=== PATIENT | female | born 1965 | race Caucasian/White ===

== ENCOUNTER 2023-02-08 15:20 | Observation (INO) | payer OTHER ==
[2023-02-08] MEDS ORDERED: Acetaminophen 650 MG Suppository PR PRN (18:46)
[2023-02-08] MEDS ORDERED: Prochlorperazine Edisylate 10 MG in Sodium Chloride 0.9% 50 ML IVPB PRN (19:07)
[2023-02-08] MEDS ORDERED: Nicotine 7 MG PATCH TD PRN (19:10)
[2023-02-08] MEDS ORDERED: Melatonin 3 MG TAB PO PRN (19:10)
[2023-02-08] MEDS ORDERED: Ventolin HFA Inhaler 60 PUFF INHALER INH PRN (19:14)
[2023-02-08] MEDS ORDERED: FLU VACC QS2023-24(6MOS UP)/PF 60 MCG/0.5 ML SYRINGE IM ONE (19:15)
[2023-02-08 19:40] VITALS: BMI 24.3
[2023-02-08] MEDS ORDERED: Famotidine/PF 20 mg/2ml Vial SLOW IVP SCH (21:00)
[2023-02-08] MEDS: Acetaminophen 325 MG TAB PO PRN (21:09)
[2023-02-08] MEDS: Heparin 5,000 UNITS/ML VIAL SC SCH (21:14)
[2023-02-08] MEDS: Sodium Chloride 0.9% 1,000 ML IV SCH (21:16)
[2023-02-08 21:58] LABS: SARS-CoV-2 NAA Rapid Test Not Detected (NotDetected)
[2023-02-08] MEDS ORDERED: traMADol HCl 50 MG TAB PO SCH (23:15)
[2023-02-08 23:46] LABS: Anion Gap 21 mmol/L (10-20); BUN (Urea Nitrogen) 62 mg/dL (9.8-20.1); Calc. Creatinine Clearance 9 mL/min (70-130); Calcium 8.3 mg/dL (7.8-10.44); Carbon Dioxide 19 mmol/L (22-29); Chloride 88 mmol/L (98-107); Estimated GFR 6; Glucose 90 mg/dL (70-105); Sodium 125 mmol/L (136-145)
[2023-02-09 03:39] LABS: #Eosinphils 0.1 10x3/uL (0.0-0.5); #Monocytes 0.8 10x3/uL (0.0-1.1); #Neutrophils 4.1 10x3/uL (1.5-8.4); %Basophils 0.6 % (0.0-2.0); %Eosinophils 0.7 % (0.0-6.0); %Lymphocytes 26.7 % (18.0-47.0); %Monocytes 11.4 % (0.0-10.0); %Neutrophils 60.3 % (40.0-75.0); Hemoglobin 12.1 g/dL (12.0-15.5); Mean Corpuscular HGB CONC 35.6 g/dL (32.0-36.0); Mean Corpuscular Hemoglobin 30.7 pg (27.0-33.0); Mean Corpuscular Volume 86.3 fl (81.6-98.3); Mean Platelet Volume 11.1 fl (7.4-10.4); Platelet Count 211 10x3/uL (150-450); Red Blood Cell (RBC) Count 3.94 10x6/uL (3.90-5.03); White Blood Cell (WBC) Count 6.7 10x3/uL (3.5-10.5)
[2023-02-09 04:10] LABS: Phosphorus 7.1 mg/dL (2.3-4.7)
[2023-02-09 04:12] LABS: Anion Gap 20 mmol/L (10-20); BUN (Urea Nitrogen) 60 mg/dL (9.8-20.1); Calc. Creatinine Clearance 10 mL/min (70-130); Carbon Dioxide 18 mmol/L (22-29); Chloride 90 mmol/L (98-107); Estimated GFR 7; Glucose 81 mg/dL (70-105); Magnesium 1.7 mg/dL (1.6-2.6); Potassium 3.1 mmol/L (3.5-5.1); Sodium 125 mmol/L (136-145)
[2023-02-09] MEDS ORDERED: Potassium Chloride 20 MEQ TAB PO SCH (07:30)
[2023-02-09] MEDS: Heparin 5,000 UNITS/ML VIAL SC SCH ×3 (08:26→21:16)
[2023-02-09] MEDS: Acetaminophen 325 MG TAB PO PRN ×2 (08:26→21:15)
[2023-02-09] MEDS ORDERED: Lidocaine 4% Patch TD SCH (10:15)
[2023-02-09] MEDS: Sodium Chloride 0.9% 1,000 ML IV SCH (10:56)
[2023-02-09 16:16] LABS: Potassium, Urine 35.7 mmol/L
[2023-02-09 19:49] LABS: Anion Gap 17 mmol/L (10-20); BUN (Urea Nitrogen) 41 mg/dL (9.8-20.1); Calc. Creatinine Clearance 23 mL/min (70-130); Calcium 8.6 mg/dL (7.8-10.44); Carbon Dioxide 20 mmol/L (22-29); Chloride 97 mmol/L (98-107); Estimated GFR 17; Glucose 96 mg/dL (70-105); Potassium 3.4 mmol/L (3.5-5.1); Sodium 131 mmol/L (136-145)
[2023-02-09 19:50] LABS: Phosphorus 3.9 mg/dL (2.3-4.7)
[2023-02-09] MEDS ORDERED: LIDOCAINE Patch Removal TOP SCH (21:00)
[2023-02-09] MEDS ORDERED: Famotidine/PF 20 mg/2ml Vial SLOW IVP SCH (21:00)
[2023-02-09] MEDS ORDERED: traMADol HCl 50 MG TAB PO PRN (23:29)
[2023-02-10 01:49] LABS: Bilirubin Neg (Negative); Blood, Urine Negative (Negative); Glucose, Urine (Dipstick) Normal (Negative); Ketone, Urine Negative (Negative); Leukocyte Negative (Negative); Nitrite Negative (Negative); Protein, Urine (Dipstick) Negative (Neg-Trace); Specific Gravity, Urine 1.015 (1.005-1.030); Urobilinogen Normal mg/dL (Less than 2)
[2023-02-10 02:13] LABS: Bacteria/HPF None Seen HPF (None Seen); Clarity Clear (Clear); RBC/HPF None Seen HPF (0-3); WBC/HPF 0-3 HPF (0-3)
[2023-02-10 02:17] LABS: Protein, Urine Random Quant Less than 10 mg/dL (1-14)
[2023-02-10 03:37] LABS: #Basophils 0.1 10x3/uL (0.0-0.2); #Eosinphils 0.1 10x3/uL (0.0-0.5); #Monocytes 0.7 10x3/uL (0.0-1.1); #Neutrophils 2.5 10x3/uL (1.5-8.4); %Basophils 1.1 % (0.0-2.0); %Eosinophils 1.6 % (0.0-6.0); %Lymphocytes 39.5 % (18.0-47.0); %Monocytes 12.8 % (0.0-10.0); %Neutrophils 44.8 % (40.0-75.0); Hematocrit 30.6 % (34.9-44.5); Hemoglobin 10.9 g/dL (12.0-15.5); Mean Corpuscular HGB CONC 35.6 g/dL (32.0-36.0); Mean Corpuscular Hemoglobin 31.1 pg (27.0-33.0); Mean Corpuscular Volume 87.4 fl (81.6-98.3); Mean Platelet Volume 11.2 fl (7.4-10.4); Platelet Count 208 10x3/uL (150-450); RBC Distribution Width 12.1 % (11.5-14.5); White Blood Cell (WBC) Count 5.5 10x3/uL (3.5-10.5)
[2023-02-10 04:16] LABS: Anion Gap 12 mmol/L (10-20); BUN (Urea Nitrogen) 33 mg/dL (9.8-20.1); Calc. Creatinine Clearance 35 mL/min (70-130); Calcium 8.3 mg/dL (7.8-10.44); Carbon Dioxide 25 mmol/L (22-29); Chloride 99 mmol/L (98-107); Estimated GFR 29; Glucose 126 mg/dL (70-105); Potassium 3.9 mmol/L (3.5-5.1); Sodium 132 mmol/L (136-145)
[2023-02-10] MEDS: Sodium Chloride 0.9% 1,000 ML IV SCH (05:12)
[2023-02-10 09:00] VITALS: BP 163/90; TEMP 97.8
[2023-02-10] MEDS ORDERED: Lidocaine 4% Patch TD SCH (09:00)
[2023-02-10] MEDS: Heparin 5,000 UNITS/ML VIAL SC SCH (09:39)
== END 2023-02-10 11:30 | disposition home or self-care (01) ==
LOC: CSHTELE 17:01 → INTOOBSV 17:01
PROVIDERS: ADMIT Internal Medicine; ATTEND Hospitalist
DX: I12.9 Hypertensive chronic kidney disease with stage 1 through stage 4 chronic kidney disease, or unspecified chronic kidney disease (principal); N18.30 Chronic kidney disease, stage 3 unspecified; N17.9 Acute kidney failure, unspecified; D63.1 Anemia in chronic kidney disease; E87.1 Hypo-osmolality and hyponatremia; E87.6 Hypokalemia; E78.5 Hyperlipidemia, unspecified; G47.00 Insomnia, unspecified; F17.210 Nicotine dependence, cigarettes, uncomplicated; F10.90 Alcohol use, unspecified, uncomplicated; Z90.710 Acquired absence of both cervix and uterus; Z79.899 Other long term (current) drug therapy
CPT/HCPCS: 0241U; 36415; 76770; 80048; 81001; 82306; 82436; 82570; 83735; 83970; 84100; 84133; 84156; 84300; 85025; 94760; 96372; 96374; 96375; 96376; G0378; J0780; J1644; J7050; S0028

== ENCOUNTER 2023-02-20 21:18 | Emergency (ER) | payer OTHER ==
[2023-02-20 21:54] LABS: Bilirubin Neg (Negative); Blood, Urine 10 (Negative); Clarity Cloudy (Clear); Glucose, Urine (Dipstick) 50 mg/dL (Negative); Ketone, Urine 5 mg/dL (Negative); Leukocyte 25 (Negative); Nitrite Negative (Negative); Protein, Urine (Dipstick) 30 mg/dl (Neg-Trace)
[2023-02-20 22:24] LABS: #Eosinphils 0.4 10x3/uL (0.0-0.5); #Monocytes 0.3 10x3/uL (0.0-1.1); %Basophils 0.5 % (0.0-2.0); %Eosinophils 4.8 % (0.0-6.0); %Lymphocytes 8.9 % (18.0-47.0); %Neutrophils 82.6 % (40.0-75.0); ALT (SGPT) 15 U/L (8-55); AST (SGOT) 18 U/L (5-34); Albumin 4.1 g/dL (3.5-5.0); Alkaline Phosphatase 78 U/L (40-110); Anion Gap 17 mmol/L (10-20); BUN (Urea Nitrogen) 8 mg/dL (9.8-20.1); Bilirubin, Total 0.4 mg/dL (0.2-1.2); Calc. Creatinine Clearance 0 mL/min (70-130); Calcium 9.6 mg/dL (7.8-10.44); Carbon Dioxide 23 mmol/L (22-29); Chloride 104 mmol/L (98-107); Estimated GFR 67; Globulin 3.3 g/dL (2.4-3.5); Glucose 154 mg/dL (70-105); Hematocrit 36.6 % (34.9-44.5); Hemoglobin 12.3 g/dL (12.0-15.5); Lipase 23 U/L (8-78); Mean Corpuscular HGB CONC 33.6 g/dL (32.0-36.0); Mean Corpuscular Hemoglobin 30.4 pg (27.0-33.0); Mean Corpuscular Volume 90.4 fl (81.6-98.3); Mean Platelet Volume 10.3 fl (7.4-10.4); Platelet Count 293 10x3/uL (150-450); Potassium 3.5 mmol/L (3.5-5.1); Protein, Total 7.4 g/dL (6.0-8.3); RBC Distribution Width 13.4 % (11.5-14.5); Red Blood Cell (RBC) Count 4.05 10x6/uL (3.90-5.03); Sodium 140 mmol/L (136-145); White Blood Cell (WBC) Count 8.5 10x3/uL (3.5-10.5)
[2023-02-20 22:36] LABS: Bacteria/HPF Rare-Few HPF (None Seen); CAUTI Indications for Culture Pelvic or flank pain; Squamous Epithelial 0-3 HPF (0-3)
[2023-02-20 22:37] LABS: Urine Culture Reflex No No
[2023-02-20] MEDS ORDERED: Lidocaine 2% Viscous Solution 10 ML, Aluminum & Magnesium Hydroxide 30 ML SSW SCH (23:15)
[2023-02-20] MEDS ORDERED: Famotidine/PF 20 mg/2ml Vial ONE (23:20)
== END 2023-02-20 23:55 | disposition home or self-care (01) ==
LOC: CSHERS 21:18
DX: R10.13 Epigastric pain (principal); R11.2 Nausea with vomiting, unspecified; I10 Essential (primary) hypertension; F17.210 Nicotine dependence, cigarettes, uncomplicated; Z79.899 Other long term (current) drug therapy
CPT/HCPCS: 74177; 80053; 81001; 83690; 85025; 96361; 96374; S0028

== ENCOUNTER 2024-02-15 12:07 | Outpatient (CLI) | payer OTHER | END 2024-02-15 12:08 | disposition home or self-care (01) | LOC: CSHMAMMO 12:07 | PROVIDERS: ATTEND Family Medicine | DX: Z12.31 Encounter for screening mammogram for malignant neoplasm of breast (principal); N64.89 Other specified disorders of breast | CPT/HCPCS: 77063; 77067 ==

== ENCOUNTER 2024-02-18 07:41 | Outpatient (CLI) | payer OTHER | END 2024-02-18 07:42 | disposition home or self-care (01) | LOC: CSHMAMMO 07:41 | PROVIDERS: ATTEND Family Medicine | DX: C50.912 Malignant neoplasm of unspecified site of left female breast (principal); N64.89 Other specified disorders of breast; N63.25 Unspecified lump in the left breast, overlapping quadrants | CPT/HCPCS: 19083; 88305; 88341; 88342; G0279 ==

== ENCOUNTER 2025-02-20 10:22 | Outpatient (CLI) | payer OTHER | END 2025-02-20 10:23 | disposition home or self-care (01) | LOC: CSHMAMMO 10:22 | PROVIDERS: ATTEND Radiology Radiation Oncology | DX: Z08 Encounter for follow-up examination after completed treatment for malignant neoplasm (principal); Z85.3 Personal history of malignant neoplasm of breast | CPT/HCPCS: 77066; G0279 ==